=== PATIENT | male | born 1985 | race American Indian/Alaskan Native ===

== ENCOUNTER 2020-09-30 16:04 | Emergency (ER) | payer SELFPAY ==
[2020-09-30 17:11] VITALS: BP 178/91
--- NOTE | 2020-09-30 18:19 | XRay Report ---
RIGHT THUMB 3 VIEWS INDICATION: thumb pain. laceration delayed healing. COMPARISON: No relevant prior imaging study available. FINDINGS: No significant skeletal abnormality. No foreign bodies or soft tissue gas. There is mild soft tissue swelling in the thumb. IMPRESSION: 1. Mild soft tissue swelling in the right thumb, otherwise unremarkable. Signer Name: Nikita Tellez MD Signed: 09/30/2020 6:14 PM Workstation Name: [id number]
--- NOTE | 2020-09-30 18:51 | Emergency Department Report ---
ED General Adult HPI - General Chief complaint: Wound/Laceration Stated complaint: THUMB INJURY/PAIN Time Seen by Provider: 09/30/20 17:07 Source: patient Mode of arrival: Ambulatory Limitations: No Limitations - History of Present Illness Initial comments: 35-year-old -[place] male presents emerged department complaining of a laceration to his right thumb while working at [employer] about 10 days ago. States that he was trying to manage symptoms by itself but felt that the wound began to have some discharge in the worried of infection. And sure if he has diabetes. Reports no fever, chills, sweats but no chest pain palpitatio n. No nausea, no vomiting, normal reinjury to the finger to his knowledge has been keeping it covered and clean with peroxide Consistency: constant Improves with: none Worsens with: none - Related Data Previous Rx's Medication Instructions Recorded Last Taken Type Chlorhexidine Gluconate [Hibiclens] 10 ml TP BID #240 liquid 09/30/20 Unknown Rx Sulfamethoxazole/Trimethoprim 1 each PO BID #20 tablet 09/30/20 Unknown Rx [Bactrim Ds] cephALEXin [Keflex] 500 mg PO Q6HR #40 capsule 09/30/20 Unknown Rx Allergies Allergy/AdvReac Type Severity Reaction Status Date / Time No Known Allergies Allergy Unverified 09/30/20 17:09 ED Review of Systems ROS: Stated complaint: THUMB INJURY/PAIN Other details as noted in HPI Comment: All other systems reviewed and negative ED Past Medical Hx - Past Medical History Previous Medical History?: No - Surgical History Past Surgical History?: No - Social History Smoking Status: Former Smoker - Medications Home Medications: Home Medications Medication Instructions Recorded Confirmed Last Taken Type Chlorhexidine Gluconate [Hibiclens] 10 ml TP BID #240 liquid 09/30/20 Unknown Rx Sulfamethoxazole/Trimethoprim 1 each PO BID #20 tablet 09/30/20 Unknown Rx [Bactrim Ds] cephALEXin [Keflex] 500 mg PO Q6HR #40 capsule 09/30/20 Unknown Rx ED Physical Exam - General Limitations: No Limitations General appearance: alert, in no apparent distress - Head Head exam: Present: atraumatic, normocephalic - Eye Eye exam: Present: normal appearance - ENT ENT exam: Present: mucous membranes moist - Neck Neck exam: Present: normal inspection - Respiratory Respiratory exam: Present: normal lung sounds bilaterally. Absent: respiratory distress - Cardiovascular Cardiovascular Exam: Present: regular rate, normal rhythm. Absent: systolic murmur, diastolic murmur, rubs, gallop - GI/Abdominal GI/Abdominal exam: Present: soft, normal bowel sounds - Rectal Rectal exam: Present: deferred - Extremities Exam Extremities exam: Present: normal inspection, tenderness (Tenderness to the right thumb with a patient had laceration repaired in the emergency department after copious irrigation. At the at the exploration of the wound there was no evidence of any retained foreign body, no evidence of any underlying fracture x- ray was normal. ) - Expanded Upper Extremity Exam Right Hand Wrist exam: Present: tenderness, erythema. Absent: swelling, abrasion, nail avulsion, other Hand L/R Front: 1 - Positive: laceration (Old not yet healed moist slightly discolored due to being in bandage. No active drainage is noted. Capillary refills are brisk. No lymphangitis is noted. No pustular discharge is appreciated at current) - Back Exam Back exam: Present: normal inspection - Neurological Exam Neurological exam: Present: alert, oriented X3 - Psychiatric Psychiatric exam: Present: normal affect, normal mood - Skin Skin exam: Present: warm, dry, intact, normal color. Absent: rash ED Course Vital Signs 09/30/20 17:08 Temperature 98.7 F Pulse Rate 98 H Respiratory 18 Rate Blood Pressure 178/91 O2 Sat by Pulse 99 Oximetry Critical care attestation.: If time is entered above; I have spent that time in minutes in the direct care of this critically ill patient, excluding procedure time. ED Disposition Clinical Impression: Laceration of finger with delay in treatment, Wound, open, finger Disposition: DC-01 TO HOME OR SELFCARE Is pt being admited?: No Does the pt Need Aspirin: No Condition: Stable Instructions: Wound Infection, Laceration Care, Adult, [id number] Prescriptions: Sulfamethoxazole/Trimethoprim [Bactrim Ds] 1 each PO BID #20 tablet Chlorhexidine Gluconate [Hibiclens] 10 ml TP BID #240 liquid cephALEXin [Keflex] 500 mg PO Q6HR #40 capsule Referrals: [facility] [Provider Group] - 3-5 Days
== END 2020-09-30 19:55 | disposition home or self-care (01) ==
LOC: ED 16:04
DX: S61.211A Laceration without foreign body of left index finger without damage to nail, initial encounter (principal); S61.201A Unspecified open wound of left index finger without damage to nail, initial encounter; Z87.891 Personal history of nicotine dependence; Z79.899 Other long term (current) drug therapy; X58.XXXA Exposure to other specified factors, initial encounter; Y93.89 Activity, other specified; Y92.89 Other specified places as the place of occurrence of the external cause; Y99.0 Civilian activity done for income or pay
CPT/HCPCS: 82962